=== PATIENT | male | born 1990 | race Caucasian/White ===

== ENCOUNTER 2021-02-07 10:44 | Day surgery (SDC) | payer OTHER ==
[~2021-02-07] VITALS: Ht 195.6 cm; Wt 101.0 kg
[~2021-02-07 10:44] MED LIST: HYDROmorphone 2 MG/ML VIAL IVP PRN; IV RINGERS,LACTATED 1000ML 1,000 ML IV SCH; MORPHINE SULFATE 2 MG/ML INJ. IVP PRN; PROCHLORPERAZINE 10 MG/2 ML VIAL. IVP PRN; fentaNYL PF VIAL 100 MCG/2 ML VIAL IVP PRN
[2021-02-07 11:25] VITALS: BP 119/64
[2021-02-07] MEDS ORDERED: fentaNYL PF VIAL 100 MCG/2 ML VIAL ONE (11:40)
[2021-02-07] MEDS ORDERED: PROPOFOL 10 MG/ML (20ML) VIAL. IV ONE (11:40)
[2021-02-07] MEDS ORDERED: ONDANSETRON PF 4 MG/2 ML VIAL. ONE (11:40)
[2021-02-07] MEDS ORDERED: DEXAMETHASONE SOD PHOS 4 MG/ML VIAL ONE (11:40)
[2021-02-07] MEDS ORDERED: MIDAZOLAM HCL/PF 2 MG/2 ML VIAL. ONE (11:40)
[2021-02-07] MEDS ORDERED: LIDOCAINE 2% PF 5 ML VIAL. ONE (11:40)
[2021-02-07] MEDS ORDERED: SEVOFLURANE 61 TO 120 MINUTES. IH ONE ×2 (11:40→13:17)
[2021-02-07] MEDS ORDERED: SUCCINYLCHOLINE 200 MG/10 ML VIAL. ONE (11:41)
[2021-02-07] MEDS ORDERED: GLYCOPYRROLATE 1 MG/5 ML VIAL. ONE (11:41)
[2021-02-07] MEDS ORDERED: NEOSTIGMINE METHYLSULFATE 5 MG/5 ML SYRINGE. ONE (11:41)
[2021-02-07] MEDS ORDERED: EPINEPHrine NASAL 30 MG/30 ML BOTTLE ONE (13:02)
[2021-02-07] MEDS ORDERED: LIDOCAINE 1% PF 30 ML VIAL. ONE (13:02)
[2021-02-07] MEDS ORDERED: 0.9 % SODIUM CHLORIDE 20 ML VIAL. IJ ONE (13:04)
[2021-02-07] MEDS ORDERED: GELATIN SPONGE SIZE 100. ONE (13:07)
[2021-02-07] MEDS ORDERED: LIDOCAINE 1%/EPI 1:100,000 20 ML VIAL. ONE (13:38)
[2021-02-07] MEDS ORDERED: HYDROmorphone 2 MG/ML VIAL ONE (13:56)
[2021-02-07] MEDS ORDERED: IBUP-1007 PO (14:50)
[2021-02-07] MEDS ORDERED: IBUPROFEN 200 MG TABLET. PO ONE ×2 (15:09→15:15)
[2021-02-07 15:32] VITALS: BP 142/87
--- NOTE | 2021-02-08 01:33 | OP ---
DATE OF SURGERY: 02/07/2021 PREOPERATIVE DIAGNOSIS: Nasal obstruction from a deviated nasal septum and inferior turbinate hypertrophy. POSTOPERATIVE DIAGNOSES: Nasal obstruction from a deviated nasal septum and inferior turbinate hypertrophy. PROCEDURE PERFORMED: Nasal septoplasty and radiofrequency reduction of the inferior nasal turbinates. INDICATIONS: Nasal blockage with obstruction. ESTIMATED BLOOD LOSS: 10-15 mL. DESCRIPTION OF PROCEDURE: The patient was placed on the operating room table in a supine position and given a general anesthetic. When his airway was secure and his vitals stable, the table was rotated 90 degrees. The nose was then decongested using topical adrenaline. The septal deviation was clearly evident then and it was significant to the right side of the nose causing anteriorly a 60-70% obstruction. There was adjacent displacement against the inferior turbinate on the right side. On the left side, there was a concavity, which then developed into a posterior nasal spur into the left side of the nose. The nasal septum was then infiltrated with 1% lidocaine with epinephrine, after which a radial incision was made in the right side along the mucocutaneous border and then gentle dissection carried out underneath the mucoperichondrium. This was done in segments as was required to circumvent the distortion that existed in the cartilage and the nasal septal bone. When skeletonization of the septum had been accomplished, segmental removal and mobilization was accomplished with crosshatching of the cartilage, removal of the twisted bony deformity, which then allowed the septum to become a midline structure. When the correction had been accomplished, the nose was irrigated and suctioned and the mobilized mucosa was repositioned and then sutured using a quilting pattern of 4-0 chromic. When it was secured in position, the attention was given to turbinates. The inferior turbinate, anterior segment on each side was then injected with sterile saline after which a coblating wand was placed within the anterior portion and Coblation energy was applied, which resulted in shrinkage and reduction in volume of the turbinate. This was completed in the right and the left side. When the septoplasty was completed and the inferior turbinate reduction was accomplished, the nose was then again cleaned and irrigated. Gelfoam was then placed in the nose for postoperative support and the procedure was completed. The patient was recovered from his anesthesia and taken to recovery room in stable condition. ARIC/ABHI/IQB DR: Yonis TID: [id number]
== END 2021-02-07 15:52 | disposition home or self-care (01) ==
LOC: SURG 10:44
PROVIDERS: ATTEND Otolaryngology
DX: J34.2 Deviated nasal septum (principal); J34.3 Hypertrophy of nasal turbinates; J34.89 Other specified disorders of nose and nasal sinuses; Z79.899 Other long term (current) drug therapy; Z87.891 Personal history of nicotine dependence; Z98.890 Other specified postprocedural states; Z72.89 Other problems related to lifestyle
CPT/HCPCS: 30520; 30802; A4209; A4215; A4930; A6402; J0330; J0690; J1100; J1170; J2250; J2405; J2704; J2710; J3010; J3490; A4657